=== PATIENT | female | born 1995 | race Caucasian/White ===

== ENCOUNTER 2021-10-24 15:48 | Emergency (ER) | payer SELFPAY ==
[~2021-10-24] VITALS: Ht 167.6 cm; Wt 77.0 kg
[2021-10-24 15:55] VITALS: BP 128/85
[2021-10-24 16:00] VITALS: BP 117/74
[2021-10-24 16:16] VITALS: BP 111/73
[2021-10-24 17:00] VITALS: BP 111/73
== END 2021-10-24 18:20 | disposition home or self-care (01) | DRG 605 ==
LOC: ED 15:48
DX: S90.32XA Contusion of left foot, initial encounter (principal); W55.29XA Other contact with cow, initial encounter; Y92.79 Other farm location as the place of occurrence of the external cause; Y99.0 Civilian activity done for income or pay